=== PATIENT | female | born 1980 | race Caucasian/White ===

== ENCOUNTER 2021-11-21 20:04 | Inpatient (IN) | payer MEDICARE, MEDICAID ==
[2021-11-21] MEDS ORDERED: Sodium Chloride 0.9% 10 ML Syringe FLUSH PRN (20:20)
[2021-11-21] MEDS ORDERED: Sodium Chloride 0.9% 1,000 ML IV ONE ×2 (20:21→21:35)
[2021-11-21] MEDS ORDERED: Ondansetron 4 MG/2 ML SDV IVPUSH ONE (20:21)
[2021-11-21] MEDS ORDERED: Ibuprofen Susp 100 MG/5 ML 5 ML UD Cup PO ONE (20:23)
[2021-11-21] MEDS ORDERED: cefTRIAXone 1 GM Vial IVPUSH ONE (20:34)
[2021-11-21 21:24] LABS: CHLORIDE,CL 101 mmol/L (98-107); SODIUM,NA 137 mmol/L (136-145)
[2021-11-21 21:25] LABS: ANION GAP 21.8 mmol/L (5-15); ESTIMATED GFR 37 mL/min (>=60)
[2021-11-21] MEDS ORDERED: Azithromycin 250 MG Tab PO SCH (23:00)
[2021-11-21] MEDS ORDERED: Ondansetron 4 MG/2 ML SDV IV PRN (23:10)
[2021-11-21] MEDS ORDERED: Ondansetron 4 MG Tab.DIS PO PRN (23:10)
[2021-11-21] MEDS ORDERED: Heparin Sodium 5,000 Units/ML Vial SUBCUT SCH (23:15)
[2021-11-22] MEDS: Non-Formulary Medication 1 Each PO SCH ×2 (00:20→10:01)
[2021-11-22] MEDS: cefTRIAXone 1 GM Vial IVPUSH SCH ×3 (00:21→11:19)
[2021-11-22] MEDS: Sodium Chloride 0.9% 1,000 ML IV SCH ×2 (00:27→17:13)
[2021-11-22] MEDS: Gabapentin 300 MG Cap PO SCH ×3 (00:27→20:15)
[2021-11-22] MEDS ORDERED: Sodium Chloride 0.9% 500 ML IV ONE (05:55)
[2021-11-22] MEDS ORDERED: Ciprofloxacin in D5W 400 MG in Premix Bag 1 BAG IV ONE ×2 (07:54)
[2021-11-22] MEDS: Sertraline 100 MG Tab PO SCH (10:00)
[2021-11-22] MEDS: DULoxetine 30 MG Cap PO SCH (10:01)
[2021-11-22] MEDS: Heparin Sodium 5,000 Units/ML Vial SUBCUT SCH ×2 (10:30→17:03)
[2021-11-22 11:07] LABS: ANION GAP 15.4 mmol/L (5-15)
[2021-11-22] MEDS: Acetaminophen 325 MG Tab PO PRN ×2 (13:10→22:55)
[2021-11-22] MEDS ORDERED: LACOSAMIDE PO SCH (14:28)
[2021-11-22 15:12] LABS: ANION GAP 19.7 mmol/L (5-15)
[2021-11-22] MEDS: LACOSAMIDE PO SCH ×2 (15:31→20:16)
[2021-11-22] MEDS ORDERED: Morphine 2 MG/ML SYRINGE IVPUSH PRN (16:03)
[2021-11-22] MEDS: Ciprofloxacin in D5W 400 MG in Premix Bag 1 BAG IV SCH ×2 (20:05)
[2021-11-22] MEDS ORDERED: Non-Formulary Medication 1 Each (Gabapentin 600 MG Tablet) PO SCH (21:00)
[2021-11-22] MEDS ORDERED: Famotidine 20 MG/2 ML SDV IVPUSH SCH (21:00)
[2021-11-23] MEDS: Heparin Sodium 5,000 Units/ML Vial SUBCUT SCH ×2 (01:53→11:29)
[2021-11-23] MEDS: Sodium Chloride 0.9% 1,000 ML IV SCH (01:54)
[2021-11-23] MEDS: Acetaminophen 325 MG Tab PO PRN (06:14)
[2021-11-23 06:58] LABS: ANION GAP 20.4 mmol/L (5-15)
[2021-11-23] MEDS ORDERED: Tamsulosin 0.4 MG Cap.ER PO SCH (09:00)
[2021-11-23] MEDS: Ciprofloxacin in D5W 400 MG in Premix Bag 1 BAG IV SCH ×2 (09:06)
[2021-11-23] MEDS: LACOSAMIDE PO SCH (09:08)
[2021-11-23] MEDS: DULoxetine 30 MG Cap PO SCH (11:28)
[2021-11-23] MEDS: Sertraline 100 MG Tab PO SCH (11:29)
[2021-11-23] MEDS: Gabapentin 300 MG Cap PO SCH (11:29)
== END 2021-11-23 09:20 | disposition short-term general hospital (02) | DRG 872 ==
LOC: VM.ED 20:04 → VM.MS 22:15
PROVIDERS: ADMIT Internal Medicine; ATTEND Family Medicine
DX: J69.0 Pneumonitis due to inhalation of food and vomit (principal); R11.2 Nausea with vomiting, unspecified; A41.9 Sepsis, unspecified organism; R13.10 Dysphagia, unspecified; N17.9 Acute kidney failure, unspecified; F32.9 Major depressive disorder, single episode, unspecified; Z86.74 Personal history of sudden cardiac arrest; Z87.820 Personal history of traumatic brain injury; Z88.1 Allergy status to other antibiotic agents; Z88.8 Allergy status to other drugs, medicaments and biological substances; N13.2 Hydronephrosis with renal and ureteral calculous obstruction; Z68.41 Body mass index [BMI] 40.0-44.9, adult; E87.2 Acidosis; N13.6 Pyonephrosis; Z20.822 Contact with and (suspected) exposure to COVID-19; R65.20 Severe sepsis without septic shock; G40.909 Epilepsy, unspecified, not intractable, without status epilepticus; F03.90 Unspecified dementia, unspecified severity, without behavioral disturbance, psychotic disturbance, mood disturbance, and anxiety; F41.9 Anxiety disorder, unspecified; F32.A Depression, unspecified; G43.909 Migraine, unspecified, not intractable, without status migrainosus; R32 Unspecified urinary incontinence; E86.0 Dehydration; E66.01 Morbid (severe) obesity due to excess calories; Z88.0 Allergy status to penicillin; Z79.899 Other long term (current) drug therapy; Z87.891 Personal history of nicotine dependence
CPT/HCPCS: 36415; 71045; 71250; 74176; 80048; 80053; 81001; 82140; 82565; 83605; 83880; 84145; 85025; 86140; 87040; 87077; 87086; 87088; 87186; 87899; 93005; 93010; 94760; 99284; A9270-GY; J0696; J0744; J1644; J2270; J2405; J3490; J7030; U0002

== ENCOUNTER 2021-11-26 09:37 | Emergency (ER) | payer MEDICARE, MEDICAID ==
[2021-11-26] MEDS ORDERED: Sodium Chloride 0.9% 10 ML Syringe FLUSH PRN (09:45)
[2021-11-26] MEDS ORDERED: Ondansetron 4 MG/2 ML SDV IVPUSH ONE (09:50)
[2021-11-26] MEDS ORDERED: Sodium Chloride 0.9% 1,000 ML IV SCH (10:00)
[2021-11-26 10:58] LABS: PTT,PARTIAL THROMBOPLSTIN TIME 26.9 SEC (20.5-30.9)
[2021-11-26 11:01] LABS: CHLORIDE,CL 107 mmol/L (98-107); SODIUM,NA 143 mmol/L (136-145)
[2021-11-26 11:06] LABS: ANION GAP 15.1 mmol/L (5-15); ESTIMATED GFR 113 mL/min (>=60)
[2021-11-26] MEDS ORDERED: Doxycycline Monohydrate 100 MG Cap PO ONE ×2 (13:31→13:36)
[2021-11-26] MEDS ORDERED: Take Home: Doxycycline 100 MG Tab, 4 Tab Pack PO ONE ×2 (13:39→15:05)
== END 2021-11-26 13:53 ==
LOC: VM.ED 09:37
DX: J18.9 Pneumonia, unspecified organism (principal); I12.9 Hypertensive chronic kidney disease with stage 1 through stage 4 chronic kidney disease, or unspecified chronic kidney disease; N18.9 Chronic kidney disease, unspecified; K21.9 Gastro-esophageal reflux disease without esophagitis; Z88.0 Allergy status to penicillin; Z88.1 Allergy status to other antibiotic agents; Z88.8 Allergy status to other drugs, medicaments and biological substances
CPT/HCPCS: 36415; 51701; 71045; 80053; 81001; 83605; 83735; 84100; 85025; 85610; 85730; 86140; 87040; 87086; 96361; 96374; 99284; A9270; J2405; J7030

== ENCOUNTER 2022-08-08 16:22 | Emergency (ER) | payer MEDICARE, MEDICAID ==
[2022-08-08] MEDS ORDERED: Ibuprofen 200 MG Tab PO STA (17:25)
== END 2022-08-08 19:03 | disposition home or self-care (01) ==
LOC: VM.ED 16:22
DX: S82.832A Other fracture of upper and lower end of left fibula, initial encounter for closed fracture (principal); I12.9 Hypertensive chronic kidney disease with stage 1 through stage 4 chronic kidney disease, or unspecified chronic kidney disease; N18.9 Chronic kidney disease, unspecified; Z88.0 Allergy status to penicillin; Z88.1 Allergy status to other antibiotic agents; Z88.8 Allergy status to other drugs, medicaments and biological substances; Z79.899 Other long term (current) drug therapy; W18.30XA Fall on same level, unspecified, initial encounter
CPT/HCPCS: 73560; 99283; A9270